=== PATIENT | female | born 1970 | race African-American/Black ===

== ENCOUNTER 2016-12-26 09:25 | Emergency (ER) | payer MEDICAID ==
[~2016-12-26] VITALS: Ht 165.1 cm; Wt 99.8 kg
[2016-12-26 09:25] VITALS: BP 117/71
[2016-12-26] MEDS ORDERED: ASPI-482 PO (09:51)
--- NOTE | 2016-12-26 09:51 | PHYS DOC ---
Past Medical History Past Medical History: Schizophrenia, Other Additional Past Medical Histor: "heart condition" "cardiac arrest and coma in 2006", cancer- pancreas Past Surgical History: Other Additional Past Surgical Histo: tumor removed from pancreas Alcohol Use: None Drug Use: Marijuana Adult General Chief Complaint Chief Complaint: CHEST PAIN HPI HPI 46-year-old female presenting to the emergency department with chest pain. She describes it as "gas". It is substernal pain that is nonradiating mild to moderate and without alleviating factors. She denies a history of hyperlipidemia diabetes. Denies unilateral leg swelling hemoptysis personal or family history of blood clotting disorders or recent immobilization. She denies fevers or chills. She denies cough. She reports having history of CHF however describes her medication for CHF as "Seroquel". This is confusing because Seroquel is not a CHF medication. Review of systems is negative for abdominal pain nausea vomiting diaphoresis. All other review of systems is negative unless otherwise noted in history of present illness. Review of Systems Review of Systems SEE ABOVE. Current Medications Current Medications Current Medications Medications (Trade) Dose Ordered Sig/Bam Start Time Stop Time Status Last Admin Dose Admin Aspirin (Children'S Aspirin) 324 mg 1X ONCE 12/26/16 11:00 12/26/16 11:01 DC 12/26/16 10:52 324 MG Allergies Allergies Allergies Coded Allergies Type Severity Reaction Last Updated Verified Penicillins Allergy Intermediate 08/09/16 Yes pork derived (porcine) Allergy Intermediate 08/09/16 Yes Physical Exam Physical Exam Constitutional: Well developed, well nourished, no acute distress, non-toxic appearance. HENT: Normocephalic, atraumatic, bilateral external ears normal, oropharynx moist, no oral exudates, nose normal. [] Eyes: PERRLA, EOMI, conjunctiva normal, no discharge. Neck: Normal range of motion, no tenderness, supple, no stridor. [] Cardiovascular:Heart rate regular rhythm, no murmur Lungs & Thorax: Bilateral breath sounds clear to auscultation [] Abdomen: Bowel sounds normal, soft, no tenderness, no masses, no pulsatile masses. [] Skin: Warm, dry, no erythema, no rash. Back: No tenderness, no CVA tenderness. [] Extremities: No tenderness, no cyanosis, no clubbing, ROM intact, no edema. Neurologic: Alert and oriented X 3, normal motor function, normal sensory function, no focal deficits noted. [] Psychologic: Affect normal, judgement normal, mood normal. [] Current Patient Data Vital Signs Vital Signs Date Time Temp Pulse Resp B/P Pulse Ox O2 Delivery O2 Flow Rate FiO2 12/26/16 09:25 70 16 117/71 95 Room Air Lab Values Laboratory Tests Test 12/26/16 10:05 White Blood Count 5.8x10^3/uL (4.0-11.0) Red Blood Count 3.93x10^6/uL (3.50-5.40) Hemoglobin 12.2g/dL (12.0-15.5) Hematocrit 36.3% (36.0-47.0) Mean Corpuscular Volume 92fL (79-100) Mean Corpuscular Hemoglobin 31pg (25-35) Mean Corpuscular Hemoglobin Concent 34g/dL (31-37) Red Cell Distribution Width 13.6% (11.5-14.5) Platelet Count 259x10^3/uL (140-400) Neutrophils (%) (Auto) 63% (31-73) Lymphocytes (%) (Auto) 25% (24-48) Monocytes (%) (Auto) 7% (0-9) Eosinophils (%) (Auto) 4% (0-3) H Basophils (%) (Auto) 1% (0-3) Neutrophils # (Auto) 3.7x10^3uL (1.8-7.7) Lymphocytes # (Auto) 1.5x10^3/uL (1.0-4.8) Monocytes # (Auto) 0.4x10^3/uL (0.0-1.1) Eosinophils # (Auto) 0.2x10^3/uL (0.0-0.7) Basophils # (Auto) 0.1x10^3/uL (0.0-0.2) Sodium Level 145mmol/L (136-145) Potassium Level 3.8mmol/L (3.5-5.1) Chloride Level 109mmol/L (98-107) H Carbon Dioxide Level 29mmol/L (21-32) Anion Gap 7 (6-14) Blood Urea Nitrogen 13mg/dL (7-20) Creatinine 1.0mg/dL (0.6-1.0) Estimated GFR (Cockcroft-Gault) 72.9 Glucose Level 103mg/dL (70-99) H Calcium Level 8.9mg/dL (8.5-10.1) Total Bilirubin 0.2mg/dL (0.2-1.0) Direct Bilirubin 0.1mg/dL (0.0-0.2) Aspartate Amino Transferase (AST) 13U/L (15-37) L Alanine Aminotransferase (ALT) 22U/L (14-59) Alkaline Phosphatase 74U/L (46-116) Troponin I Quantitative < 0.017ng/mL (0.000-0.055) QE-Taa-O-Type Natriuretic Peptide 96pg/mL (0-124) Total Protein 7.6g/dL (6.4-8.2) Albumin 3.3g/dL (3.4-5.0) L Lipase 116U/L (73-393) Laboratory Tests 12/26/16 10:05 Laboratory Tests 12/26/16 10:05 EKG EKG EKG reviewed by myself shows sinus rhythm with regular rate. [place] is mildly leftward. Intervals are within normal limits. ST segments are congruent. Not consistent with acute coronary syndrome. Radiology/Procedures Radiology/Procedures [] Course & Med Decision Making Course & Med Decision Making Pertinent Labs and Imaging studies reviewed. (See chart for details) [] 46-year-old female presenting the emergency department today with chest pain. EKG unremarkable. Chest x-ray unremarkable. Blood work obtained and IV established. Patient was given aspirin in the emergency department. Troponin negative. On reevaluation the patient's symptoms had improved significantly. I had ordered a second troponin however the patient did not want to wait. She then left AGAINST MEDICAL ADVICE. I explained to her in plain clear language that we have not fully evaluated her for having a "heart attack". I explained to her that she is at risk of sudden and disability in plain, and language. She demonstrated verbal understanding and then left AGAINST MEDICAL ADVICE. Dragon Disclaimer Dragon Disclaimer This electronic medical record was generated, in whole or in part, using a voice recognition dictation system. Departure Departure Impression: Primary Impression: Chest pain Disposition: AGAINST MEDICAL ADVICE Referrals: NO PCP (PCP) YESENIA WHYTE MD Patient Instructions: Chest Pain (Nonspecific) Scripts Aspirin (Aspir 81)81 Mg Tablet.dr1 Tab PO DAILY #7 TAB Ref 0 Prov:TANISHA VALERA MD 12/26/16 TANISHA VALERA MD Dec 26, 2016 09:51
--- NOTE | 2016-12-26 10:07 | RAD ---
AP portable chest radiograph 12/26/2016 Clinical History: Chest pain for last 4 hours. Shortness of breath. An AP portable erect digital radiograph of the chest was obtained. Comparison study is dated 12/20/2004. The cardiac silhouette is mildly enlarged. The thoracic aorta is tortuous. Atherosclerotic desiccation of the thoracic aorta is seen. Prominence of pulmonary vasculature is seen suggesting mild CHF. No area of consolidation is noted. No pneumothorax or pleural effusion is seen. Mild degenerative changes are seen involving the thoracic spine. Impression: Findings suggesting mild CHF.
[2016-12-26 10:22] LABS: CALCIUM 8.9 mg/dL (8.5-10.1); GFR 72.9; POTASSIUM 3.8 mmol/L (3.5-5.1)
[2016-12-26 10:25] LABS: BASO # 0.1 x10^3/uL (0.0-0.2); BASO % 1 % (0-3); EOS % 4 % (0-3); HEMATOCRIT 36.3 % (36.0-47.0); HEMOGLOBIN 12.2 g/dL (12.0-15.5); LYMPH # 1.5 x10^3/uL (1.0-4.8); LYMPH % 25 % (24-48); MEAN CORPUSCULAR HEMOGLOBIN 31 pg (25-35); MEAN CORPUSCULAR HGB CONC 34 g/dL (31-37); MEAN CORPUSCULAR VOLUME 92 fL (79-100); MONO % 7 % (0-9); NEUT % 63 % (31-73); PLATELET COUNT 259 x10^3/uL (140-400); RED BLOOD COUNT 3.93 x10^6/uL (3.50-5.40); RED CELL DISTRIBUTION WIDTH 13.6 % (11.5-14.5); WHITE BLOOD COUNT 5.8 x10^3/uL (4.0-11.0)
[2016-12-26 10:28] LABS: ALBUMIN 3.3 g/dL (3.4-5.0); DIRECT BILIRUBIN 0.1 mg/dL (0.0-0.2); TOTAL BILIRUBIN 0.2 mg/dL (0.2-1.0); TOTAL PROTEIN 7.6 g/dL (6.4-8.2)
--- NOTE | 2016-12-26 10:31 | EKG ---
[facility] [address] [place] [address] Test Date: 2016-12-26 Test Time: 09:33:50 Pat Name: BRIAN BELTRAN Department: Room: Gender: F Patient Registrar: : 1970 Requested By: TANISHA VALERA Order Number: [id number] Reading MD: Vero Anderson Measurements Intervals [place] Rate: 72 P: 46 MT: 200 QRS: -4 QRSD: 90 T: 24 QT: 390 QTc: 429 Interpretive Statements SINUS RHYTHM LEFTWARD AXIS OTHERWISE NORMAL ECG RI6.01 Unconfirmed report No previous ECG available for comparison Electronically Signed On 12-26-2016 17:43:49 CDT by Vero Anderson
[2016-12-26] MEDS ORDERED: ASPIRIN CHEWABLE 81 MG TABLET. PO ONE (11:00)
== END 2016-12-26 11:30 | disposition left against medical advice (07) ==
LOC: ER 09:25
DX: R07.2 Precordial pain (principal); F20.9 Schizophrenia, unspecified; F12.10 Cannabis abuse, uncomplicated; I50.9 Heart failure, unspecified; Z91.018 Allergy to other foods; Z86.74 Personal history of sudden cardiac arrest; Z88.0 Allergy status to penicillin
CPT/HCPCS: 36415; 71010; 80048; 80076; 83690; 83880; 84484; 85027; 93005; 99285-25